=== PATIENT | female | born 1955 | race Caucasian/White ===

== ENCOUNTER → 2023-11-07 09:26 | Outpatient (REF) | payer MEDICARE, SELFPAY | LOC: RAD 09:26 | DX: M81.0 Age-related osteoporosis without current pathological fracture (principal); M19.90 Unspecified osteoarthritis, unspecified site | CPT/HCPCS: 73130; 77080 ==

== ENCOUNTER → 2024-01-07 08:23 | Outpatient (REF) | payer MEDICARE, SELFPAY | LOC: WDC 08:23 | PROVIDERS: ATTENDING PHYSICIAN Internal Medicine | DX: Z00.01 Encounter for general adult medical examination with abnormal findings (principal); Z12.31 Encounter for screening mammogram for malignant neoplasm of breast | CPT/HCPCS: 77063; 77067 ==

== ENCOUNTER → 2024-01-13 08:38 | Outpatient (REF) | payer MEDICARE, SELFPAY | LOC: WDC 08:38 | PROVIDERS: ATTENDING PHYSICIAN Internal Medicine | DX: R92.8 Other abnormal and inconclusive findings on diagnostic imaging of breast (principal) | CPT/HCPCS: 76642 ==

== ENCOUNTER → 2025-01-07 08:13 | Outpatient (REF) | payer MEDICARE, SELFPAY | LOC: WDC 08:13 | PROVIDERS: ATTENDING PHYSICIAN Internal Medicine | DX: Z12.31 Encounter for screening mammogram for malignant neoplasm of breast (principal) | CPT/HCPCS: 77063; 77067 ==